=== PATIENT | male | born 1945 | race Caucasian/White ===

== ENCOUNTER → 2016-10-07 | Outpatient (CLI) | payer MEDICARE, BC | LOC: SP 07:55 | PROVIDERS: ATTEND Internal Medicine | DX: I82.512 Chronic embolism and thrombosis of left femoral vein (principal) | CPT/HCPCS: 93971 ==

== ENCOUNTER → 2020-06-28 | Outpatient (CLI) | payer MEDICARE, BC ==
--- NOTE | 2020-06-28 11:52 | RADIOLOGY REPORT (SQ) ---
EXAM DESCRIPTION: VENOUS UNILATERAL LOWER IMAGES COMPLETED DATE/TIME: 06/28/2020 10:44 am REASON FOR STUDY: LLE SWELLING M25.475 EFFUSION, LEFT FOOT Z86.718 PERSONAL HISTORY OF OTHER VENOU S THROMBOSIS AND EMBO COMPARISON: None. TECHNIQUE: Dynamic and static pappas scale and color images acquired of the left leg venous system. Se lected spectral images acquired with additional compression and augmentation maneuvers. The contralat eral common femoral vein and saphenofemoral junction were also imaged. Images stored on PACS. LIMITATIONS: None. FINDINGS: COMMON FEMORAL: Normal phasicity, compression and augmentation. No visualized echogenic ma terial on pappas scale. No defects on color images. FEMORAL: Normal compression and augmentation. No visualized echogenic material on pappas scale. No defe cts on color images. POPLITEAL: Normal compression, augmentation. No visualized echogenic material on pappas scale. No defec ts on color images. CALF VESSELS: Decreased compressibility within 1 of the 2 posterior tibial veins with filling defect noted on grayscale evaluation. Additional nonocclusive filling defect within the peroneal vein. GSV and SSV: Normal compression, augmentation. No visualized echogenic material on pappas scale. No def ects on color images. ANY DEEP VENOUS INSUFFICIENCY: Not evaluated. ANY EVIDENCE OF POPLITEAL CYST: No. OTHER: No other significant finding. CONTRALATERAL COMMON FEMORAL VEIN AND SAPHENOFEMORAL JUNCTION: Normal phasicity, compression and augmentation. No visualized echogenic material on pappas scale. No de fects on color images. IMPRESSION: Left lower extremity Deep venous thrombosis involving a posterior tibial and peroneal ve in. Results called to ordering provider at 1030 hours on 06/28/2020. TECHNICAL DOCUMENTATION: JOB ID: [id number] 2010 [employer]- All Rights Reserved Reading location - IP/workstation name: [email or web address]
== END ==
LOC: SP 09:29
PROVIDERS: ATTEND Internal Medicine
DX: M25.475 Effusion, left foot (principal); I82.442 Acute embolism and thrombosis of left tibial vein
CPT/HCPCS: 93971

== ENCOUNTER 2020-09-17 07:49 | Emergency (ER) | payer MEDICARE, BC ==
[2020-09-17 07:55] VITALS: BP 147/95
[2020-09-17] MEDS ORDERED: LIDOCAINE 1%/EPINEPHRINE INJ 20 ML VIAL INJ ONE (10:37)
--- NOTE | 2020-09-17 10:37 | ER Document Report ---
ED General - General Chief Complaint: Laceration Stated Complaint: LACERATIONS/TOP OF RIGHT FOOT Time Seen by Provider: 09/17/20 10:28 Primary Care Provider: KERRY TEJADA MD [Primary Care Provider] - Follow up in 1 week (Suture removal in 10-14 days) TRAVEL OUTSIDE OF THE [place] IN LAST 30 DAYS: No - HPI Notes: 74-year-old male to the emergency department with complaints of a laceration to his right foot that occurred just prior to arrival. States he was caring several [employer] plates when he accidentally dropped them onto his foot and it cut him. He was barefoot at the time. He states that his last tetanus was 4 years ago. 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 He denies any other injuries. He denies any difficulty walking or wiggling his toes. - Related Data Allergies/Adverse Reactions: codeine [Codeine] Allergy (Verified 05/30/13 14:14) SICK Home Medications: Xarelto Past Medical History - General Information source: Patient - Social History Smoking Status: Never Smoker Chew tobacco use (# tins/day): No Frequency of alcohol use: None Drug Abuse: None Family History: Reviewed & Not Pertinent - Past Medical History Cardiac Medical History: Reports: Hx Hypercholesterolemia, Hx Hypertension Denies: Hx Heart Attack Pulmonary Medical History: Denies: Hx Asthma Neurological Medical History: Denies: Hx Cerebrovascular Accident, Hx Seizures GI Medical History: Reports: Hx Gastroesophageal Reflux Disease - RESOLVED AFTER SURGERY. Denies: Hx Hepatitis, Hx Hiatal Hernia, Hx Ulcer Infectious Medical History: Denies: Hx Hepatitis Past Surgical History: Denies: Hx Open Heart Surgery, Hx Pacemaker Review of Systems - Review of Systems Constitutional: denies: Chills, Fever EENT: No symptoms reported Cardiovascular: denies: Chest pain, Palpitations, Syncope, Dizziness, Lightheaded Respiratory: denies: Cough, Short of breath Gastrointestinal: denies: Abdominal pain, Diarrhea, Nausea, Vomiting Musculoskeletal: See HPI Skin: See HPI Hematologic/Lymphatic: No symptoms reported Neurological/Psychological: No symptoms reported -: Yes All other systems reviewed and negative Physical Exam - Vital signs Vitals: Temp Pulse Resp BP Pulse Ox 98.2 F 128 H 16 147/95 H 98 09/16/20 07:52 09/16/20 07:52 09/16/20 07:52 09/16/20 07:52 09/16/20 07:52 Selected Entries 09/17/20 09/17/20 09:10 11:02 Pulse Rate [ 95 Finger] Heart Rate ( 99 Monitors) Interpretation: Normal - Notes Notes: PHYSICAL EXAMINATION: GENERAL: pleasant elderly gentleman, Well-appearing, well-nourished and in no acute distress. HEAD: Atraumatic, normocephalic. EYES: Pupils equal round and reactive to light, extraocular movements intact, sclera anicteric, conjunctiva are normal. ENT: nares patent, oropharynx clear without exudates. Moist mucous membranes. NECK: Normal range of motion, supple without lymphadenopathy LUNGS: Breath sounds clear to auscultation bilaterally and equal. No wheezes rales or rhonchi. HEART: Regular rate and rhythm without murmurs ABDOMEN: Soft, nontender, normoactive bowel sounds. No guarding, no rebound. No masses appreciated. EXTREMITIES: there is a large laceration measuring approximately 6 cm to the dorsum of the right foot. Tendons of the foot are visible but they do not appear to be lacerated. There is slight oozing of blood but no evidence for an arterial bleed. To the medial aspect of the right foot there is a laceration that measures approximately 3 cm. It also continues to ooze blood. DP pulses are intact and equal. Patient can wiggle all toes. Cap refill is less than 2 sec. there is TTP over the dorsum of the foot with evolving ecchymosis lucy rounding the laceration. Dorsiflexion is intact with 5/5 strength against resistance as well as plantar flexion. non tender to palpation of the right ankle, knee, hip. NEUROLOGICAL: No focal neurological deficits. Moves all extremities spontaneously and on command. PSYCH: Normal mood, normal affect. SKIN: Warm, Dry, normal turgor, no rashes or lesions noted. see extremities for discussion of the laceration to the right foot. Course - Re-evaluation Re-evalutation: 09/17/20 Impression: Right foot laceration, No fx on XR. Bleeding was controlled and laceration repaire with 4-0 Nylon sutures (total number of 22). No evidence for tendon laceration. Will prophalactically cover with ABX. Patient is advised to elevated, ice the foot. We will also apply a Quick Clot dressing to the foot to aid in further hemostasis. He is not to take this dressing off for 24 hours. - Vital Signs Vital signs: Temp Pulse Resp BP Pulse Ox 98.2 F 95 16 147/95 H 98 09/16/20 07:52 09/17/20 11:02 09/16/20 07:52 09/16/20 07:52 09/17/20 11:02 - Laboratory Results Critical Laboratory Results Reviewed: No Critical Results - Radiology Results Critical Radiology Results Reviewed: No Critical Results Procedures - Laceration/Wound Repair Right Foot Wound length (cm): 9 Wound's Depth, Shape: Superficial Laceration pre-procedure: Sterile drapes applied, Shur-Clens applied, Other - saline irrigation Anesthetic type: 1% Lidocaine w/epi Volume Anesthetic (mLs): 6 Wound explored: Clean, No foreign body removed Irrigated w/ Saline (mLs): 300 Wound Debrided: Minimal Wound Repaired With: Sutures Suture Size/Type: 4:0 Number of Sutures: 22 - 17 in large 6 cm lac, 5 in small lac Layer Closure?: No Post-procedure wound care: Other - Quick clot dressing with roll gauze post op shoe. Discharge - Discharge Clinical Impression: Foot pain, right Laceration of right foot Qualifiers: Encounter type: initial encounter Qualified Code(s): S91.311A - Laceration without foreign body, right foot, initial encounter Condition: Good Disposition: HOME, SELF-CARE Instructions: Laceration Care ([facility]), Prophylactic Antibiotic ([facility]) Additional Instructions: Complete antibiotics. Suture removal in 10 to 14 days. Keep the foot elevated to help decrease swelling and pain. You may take Tylenol for any pain. The dressing that was put on today is a special dressing called quick clot. It needs to stay on for 24 hours before you remove it. Return if you have worsening pain, fever, redness, bleeding that will not stop. Prescriptions: Cephalexin Monohydrate [Keflex 500 mg Capsule] 500 mg PO QID #28 capsule Referrals: KERRY TEJADA MD [Primary Care Provider] - Follow up in 1 week (Suture removal in 10-14 days)
--- NOTE | 2020-09-17 11:10 | RADIOLOGY REPORT (SQ) ---
EXAM DESCRIPTION: FOOT RIGHT COMPLETE IMAGES COMPLETED DATE/TIME: 09/17/2020 10:56 am REASON FOR STUDY: foot laceration COMPARISON: None. NUMBER OF VIEWS: Three views. TECHNIQUE: AP, lateral and oblique radiographic images acquired of the right foot. LIMITATIONS: None. FINDINGS: MINERALIZATION: Normal. BONES: No acute fracture or dislocation. No worrisome bone lesions. JOINTS: No effusions. SOFT TISSUES: Dorsal soft tissue injury. Gas in the soft tissues. No foreign body. OTHER: No other significant finding. IMPRESSION: DORSAL SOFT TISSUE INJURY. NO FRACTURE. NO RADIOPAQUE FOREIGN OBJECT. TECHNICAL DOCUMENTATION: JOB ID: [id number] 2010 [email or web address]- All Rights Reserved Reading location - IP/workstation name: [email or web address]
== END 2020-09-17 13:09 | disposition home or self-care (01) ==
LOC: ER 07:49
DX: S91.311A Laceration without foreign body, right foot, initial encounter (principal); W26.8XXA Contact with other sharp object(s), not elsewhere classified, initial encounter; Y93.89 Activity, other specified; Y92.009 Unspecified place in unspecified non-institutional (private) residence as the place of occurrence of the external cause; I10 Essential (primary) hypertension; Z79.01 Long term (current) use of anticoagulants; Z86.718 Personal history of other venous thrombosis and embolism; Z88.6 Allergy status to analgesic agent; Z88.5 Allergy status to narcotic agent
CPT/HCPCS: 99283; 73630; 12004; J3490